=== PATIENT | female | born 1960 | race American Indian/Alaskan Native ===

== ENCOUNTER 2019-03-02 12:19 | Emergency (ER) | payer BC, OTHER ==
[2019-03-02] MEDS ORDERED: IBUPROFEN 600 MG TAB PO ONE (13:34)
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
[2019-03-02 14:45] VITALS: BP 145/87
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
== END 2019-03-02 15:33 | disposition home or self-care (01) ==
LOC: ED 12:19
DX: M25.511 Pain in right shoulder (principal); M79.601 Pain in right arm; M54.2 Cervicalgia; I10 Essential (primary) hypertension; Z88.6 Allergy status to analgesic agent; V49.49XA Driver injured in collision with other motor vehicles in traffic accident, initial encounter; Y93.89 Activity, other specified; Y92.410 Unspecified street and highway as the place of occurrence of the external cause; Y99.8 Other external cause status
CPT/HCPCS: 72040

== ENCOUNTER 2019-03-20 18:02 | Emergency (ER) | payer OTHER, BC ==
[2019-03-20 18:55] VITALS: BP 149/88
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
== END 2019-03-20 20:59 | disposition home or self-care (01) ==
LOC: ED 18:02
DX: M25.561 Pain in right knee (principal); I10 Essential (primary) hypertension; Z88.5 Allergy status to narcotic agent; Z79.899 Other long term (current) drug therapy; V87.7XXA Person injured in collision between other specified motor vehicles (traffic), initial encounter; Y93.89 Activity, other specified; Y92.488 Other paved roadways as the place of occurrence of the external cause; Y99.8 Other external cause status
CPT/HCPCS: 99283